=== PATIENT | female | born 1945 | race Two or more races ===

== ENCOUNTER 2025-04-20 16:25 | Emergency (ER) | payer OTHER ==
[~2025-04-20] VITALS: Ht 149.9 cm; Wt 46.3 kg
[2025-04-20] MEDS ORDERED: TRELEGY ELLIPT1 EACH IH (18:49)
[2025-04-20] MEDS ORDERED: 0.9 % SODIUM CHLORIDE 500 ML IV ONE (19:30)
[2025-04-20 20:37] LABS: BASO % 0.3 % (0.1-1.2); EOS # 0.07 (0.04-0.54); EOS % 1.1 % (0.7-7.0); LYMPH # 1.46 (1.18-3.74); LYMPH % 23.8 % (19.3-53.1); MEAN PLATELET VOLUME 10.30 fl (9.4-12.4); MONO # 0.54 (0.24-0.82); MONO % 8.8 % (4.7-12.5); NEUT # 4.04 (1.56-6.13); NEUT % 65.8 % (34.0-71.1); RED CELL DISTRIBUTION WIDTH 14.7 % (11.6-14.4)
[2025-04-20 21:02] LABS: INR 1.02
[2025-04-20 21:06] LABS: ALT/SGPT 25.0 U/L (12-78); AST/SGOT 16.0 U/L (15-37); BILIRUBIN TOTAL 0.53 mg/dL (0.3-1.2); BUN CREA RATIO 16.0 (7.0-25.0); CREATININE SERUM 0.7 mg/dL (0.55-1.02); GFR 80.31; GLOBULINA 3.7 G/DL (2.4-3.5); GLUCOSE FASTING 104.0 mg/dL (65-100); OSMOLALITY SERUM 285.0 MOSM/KG (275-295)
[2025-04-20 23:41] LABS: ob POSITIVE (NEGATIVE)
[2025-04-20] MEDS ORDERED: LACTULOSE 20 G/30 ML BLIST.PACK PO ONE (23:45)
[2025-04-20] MEDS ORDERED: MAGNESIUM HYDROXIDE 400 MG/5 ML ML PO ONE (23:45)
[2025-04-20] MEDS ORDERED: MINERAL OIL 30 ML BLIST.PACK PO ONE (23:45)
[2025-04-21] MEDS ORDERED: MIRALAX17 GM PO (00:04)
[2025-04-21] MEDS ORDERED: MAGNESIUM HYDROXIDE 30 ML BLIST.PACK PO ONE (02:12)
[2025-04-21] MEDS ORDERED: LACTULOSE 20 G/30 ML BLIST.PACK ONE (02:12)
[2025-04-21] MEDS ORDERED: MINERAL OIL 30 ML BLIST.PACK ONE (02:12)
== END 2025-04-21 03:17 ==
LOC: ER 16:26
PROVIDERS: General Practice
DX: K56.41 Fecal impaction (principal); Z88.6 Allergy status to analgesic agent
CPT/HCPCS: 36415; 74177; 96365; 96366; 99284; J7042; Q9965

== ENCOUNTER 2025-05-03 12:16 | Emergency (ER) | payer OTHER ==
[~2025-05-03] VITALS: Ht 160 cm; Wt 63.5 kg
[~2025-05-03 12:16] MED LIST: MIRALAX17 GM PO; TRELEGY ELLIPT1 EACH IH
[2025-05-03 14:14] VITALS: BP 147/62; O2SAT 97
[2025-05-03] MEDS ORDERED: ACETAMINOPHEN 500 MG GEL..CAP PO ONE ×3 (15:00→16:25)
== END 2025-05-03 16:54 | disposition home or self-care (01) ==
LOC: ER 12:16
DX: S00.03XA Contusion of scalp, initial encounter (principal); W07.XXXA Fall from chair, initial encounter; Y93.89 Activity, other specified; Y92.89 Other specified places as the place of occurrence of the external cause; Z88.6 Allergy status to analgesic agent; J45.909 Unspecified asthma, uncomplicated; Z85.038 Personal history of other malignant neoplasm of large intestine; R04.0 Epistaxis